=== PATIENT | female | born 1945 | race Caucasian/White ===

== ENCOUNTER 2024-05-05 23:49 | Emergency (ER) | payer BC ==
[~2024-05-05] VITALS: Ht 167.6 cm; Wt 54.4 kg
[~2024-05-05 23:49] MED LIST: AMOX1TAB16 PO; LISI1TAB55 PO; MIRT-121 PO
[2024-05-06] MEDS ORDERED: LORAZEPAM 0.5 MG TABLET ONE (00:43)
[2024-05-06] MEDS: IV NS 0.9% 500 ML BAG IV ONE (00:44)
[2024-05-06] MEDS: LORAZEPAM 1 MG TABLET PO ONE (00:44)
[2024-05-06 00:48] LABS: BASOPHILS % (AUTO) 0.5 % (0.0-2.0); EOSINOPHILS # (AUTO) 0.1 K/uL (0.0-0.7); EOSINOPHILS % (AUTO) 1.6 % (0.0-6.0); HEMATOCRIT 37 % (33-45); HEMOGLOBIN 12.9 g/dL (11.5-14.8); LYMPHOCYTES # (AUTO) 2.1 K/uL (0.8-4.8); LYMPHOCYTES % (AUTO) 27.2 % (20.0-44.0); MEAN CORPUSCULAR HEMOGLOBIN 31 PG (26.0-33.0); MEAN CORPUSCULAR HGB CONC 35 g/dl (31.0-36.0); MEAN CORPUSCULAR VOLUME 88 fL (82-100); MONOCYTES # (AUTO) 0.6 K/uL (0.1-1.30); MONOCYTES % (AUTO) 7.9 % (2.0-12.0); NEUTROPHILS % (AUTO) 62.8 % (43.0-81.0); PLATELET COUNT (AUTO) 202 K/uL (150-450); RED BLOOD CELL COUNT(AUTO) 4.18 MIL/uL (4.0-5.2); RED CELL DISTRIBUTION WIDTH 13.5 % (11.5-15.0); WHITE BLOOD COUNT (AUTO) 7.9 K/uL (4.3-11.0)
[2024-05-06 01:02] LABS: CALCIUM, SERUM 9.2 mg/dL (8.5-10.1); POTASSIUM 4.7 mmol/L (3.5-5.1)
[2024-05-06 01:04] LABS: MAGNESIUM 2.1 mg/dL (1.8-2.4); PHOSPHORUS 3.4 mg/dL (2.5-4.9)
[2024-05-06 01:18] LABS: ALBUMIN 3.7 g/dL (3.4-5.0); BILIRUBIN,DIRECT 0.1 mg/dL (0.0-0.2); BILIRUBIN,TOTAL 0.4 mg/dL (0.2-1.0); TOTAL PROTEIN, SERUM 7.4 g/dL (6.4-8.2)
[2024-05-06 02:23] VITALS: BP 168/90; TEMP 98.1; O2SAT 99
== END 2024-05-06 02:27 | disposition home or self-care (01) ==
LOC: ER 23:51
DX: F41.9 Anxiety disorder, unspecified (principal); R20.0 Anesthesia of skin; I10 Essential (primary) hypertension; Z79.899 Other long term (current) drug therapy
CPT/HCPCS: 99283; 96360; 85025; 80048; 83690; 80076; 83735; 84100; 36415; J7040